=== PATIENT | male | born 1975 | race African-American/Black ===

== ENCOUNTER 2017-12-23 16:04 | Emergency (ER) | payer SELFPAY ==
[2017-12-23] MEDS ORDERED: OXYCODONE-ACETAMINOPHEN 5-325 MG TABLET PO ONE (17:48)
[2017-12-23] MEDS ORDERED: AMOXICILLIN TRIHYDRATE 500 MG CAPSULE PO ONE (17:48)
--- NOTE | 2017-12-23 17:54 | ER Document Report ---
HPI - HPI Pain Level: 3 Notes: Patient is a 42-year-old male who presents to the emergency department today with chief complaint of sore throat, nasal congestion and swollen lymph nodes. Patient also reports pain to his face. Patient reports this is been going on for several days now. Patient denies nausea, vomiting or diarrhea. Reports low -grade fever at home. - CONSTITUTIONAL Constitutional: DENIES: Fever, Chills - EENT EENT: REPORTS: Sore Throat. DENIES: Ear Pain, Eye problems - NEURO Neurology: DENIES: Headache, Weakness, Vision blurred, Dizzinesss / Vertigo - CARDIOVASCULAR Cardiovascular: DENIES: Chest pain - RESPIRATORY Respiratory: DENIES: Trouble Breathing, Coughing - GASTROINTESTINAL Gastrointestinal: DENIES: Abdominal Pain, Black / Bloody Stools - URINARY Urinary: DENIES: Dysuria, Urgency, Frequency - MUSCULOSKELETAL Musculoskeletal: DENIES: Extremity pain Past Medical History - General Information source: Patient - Social History Smoking Status: Never Smoker Chew tobacco use (# tins/day): No Frequency of alcohol use: None Drug Abuse: None Family History: Reviewed & Not Pertinent Patient has suicidal ideation: No Patient has homicidal ideation: No - Medical History Medical History: Negative Renal/ Medical History: Denies: Hx Peritoneal Dialysis Vertical Provider Document - CONSTITUTIONAL Notes: PHYSICAL EXAMINATION: GENERAL: Well-appearing, well-nourished and in no acute distress. HEAD: Atraumatic, normocephalic. EYES: Pupils equal round extraocular movements intact, conjunctiva are normal. ENT: Nares patent, tenderness to palpation over frontal and maxillary sinuses. Tenderness along cervical lymph node chains. NECK: Normal range of motion LUNGS: No respiratory distress Musculoskeletal: Normal range of motion NEUROLOGICAL: Normal speech, normal gait. PSYCH: Normal mood, normal affect. SKIN: Warm, Dry, normal turgor, no rashes or lesions noted. - INFECTION CONTROL TRAVEL OUTSIDE OF THE [place] IN LAST 30 DAYS: No Course - Re-evaluation Re-evalutation: Rapid strep is negative. Patient's physical examination and history is consistent with acute sinusitis. Patient will be placed on antibiotics and discharged home in stable condition. - Vital Signs Vital signs: Temp Pulse Resp BP Pulse Ox 98.1 F 52 L 16 123/79 100 12/23/17 16:09 12/23/17 16:09 12/23/17 16:09 12/23/17 16:09 12/23/17 16:09 Discharge - Discharge Clinical Impression: Sinus infection Qualifiers: Sinusitis location: unspecified location Chronicity: acute Recurrence: non- recurrent Qualified Code(s): J01.90 - Acute sinusitis, unspecified Condition: Stable Disposition: HOME, SELF-CARE Additional Instructions: Sinusitis You have sinusitis, an infection of the sinus cavities of the face. The sinuses are air-filled chambers which open into the inside of the nose. Bacteria and pus fill a sinus, causing pain, drainage, and fever. Sinusitis is treated with antibiotics. Often, expectorants (to thin the sinus mucous) or decongestants (to reduce swelling) are prescribed as well. Healing requires seven to 10 days. Avoid chemical fumes, pollens, dusts, and smoke (especially cigarette smoke ). Keep the air humidified in your bedroom and work area and take plenty of liquids by mouth. This condition can be serious if the infection spreads. If your symptoms worsen, or if you develop severe headache, high fever, stiff neck, or a rash, you must call the doctor or return for re-evaluation. Take medication as prescribed. Drink plenty of fluids. Rest. Ibuprofen or Tylenol for pain or discomfort. Follow-up with your primary care provider in 3-5 days for follow-up. Prescriptions: Amoxicillin 1 tab PO TID #30 tab Forms: Return to Work
[2017-12-23 18:16] VITALS: BP 145/85
== END 2017-12-23 18:16 | disposition home or self-care (01) ==
LOC: ER 16:04
DX: J01.90 Acute sinusitis, unspecified (principal); J02.9 Acute pharyngitis, unspecified; R09.81 Nasal congestion; R59.9 Enlarged lymph nodes, unspecified
CPT/HCPCS: 87070; 87880; 99283